=== PATIENT | female | born 1975 | race Caucasian/White ===

== ENCOUNTER 2021-01-14 05:26 | Emergency (ER) | payer OTHER ==
[~2021-01-14] VITALS: Ht 162.6 cm; Wt 68.0 kg
[2021-01-14] MEDS ORDERED: LEXAPRO 10 MG T10 M2 PO (05:35)
[2021-01-14] MEDS ORDERED: ADDERALL 20 MG20 MG PO (05:35)
[2021-01-14 05:44] LABS: URINE BILIRUBIN NEGATIVE (Negative); URINE BLOOD 2+ (Negative); URINE CLARITY CLEAR; URINE COLOR YELLOW; URINE GLUCOSE-RANDOM NEGATIVE (Negative); URINE KETONES NEGATIVE (Negative); URINE LEUKOCYTES-REFLEX NEGATIVE (Negative); URINE NITRITE-REFLEX NEGATIVE (Negative); URINE PROTEIN NEGATIVE (Negative); URINE SPECIFIC GRAVITY 1.025 (1.005-1.030); URINE UROBILINOGEN 0.2 E.U./dl (0.2-1.0)
[2021-01-14 05:51] LABS: SQUAMOUS 0-3 Few /LPF (0-3); URINE WBC-REFLEX 0-5 Rare /HPF (0-5)
[2021-01-14 05:54] LABS: BACTERIA-REFLEX 1-9 Few /HPF (None Seen); CASTS None Seen /LPF (None Seen); CRYSTALS None Seen /LPF (None Seen); MUCUS 0-3 Light strn/LPF (None Seen); URINE RBC 3-10 Few /HPF (0-2)
[2021-01-14 06:01] LABS: ABSOLUTE BASOPHILS 0.1 thou/uL (0.0-0.2); ABSOLUTE EOSINOPHILS 0.4 thou/uL (0.0-0.7); ABSOLUTE LYMPHOCYTES 1.8 thou/uL (0.8-5.3); ABSOLUTE MONOCYTES 0.7 thou/uL (0.0-1.2); ABSOLUTE NEUTROPHILS 10.1 thou/uL (1.6-8.1); BASOPHILS 0.8 %; EOSINOPHILS 3.2 %; HEMATOCRIT 42.6 % (37.0-47.0); HEMOGLOBIN 14.1 gm/dL (12.0-15.0); LYMPHOCYTES 13.5 %; MCH 28.4 pg (26.0-34.0); MCHC 33.2 g/dL (28.0-37.0); MCV 85.4 fL (80.0-100.0); MONOCYTES 5.4 %; MPV 8.8 fl. (7.2-11.1); NUCLEATED RBCS 0 /100WBC; PLATELET COUNT* 261 thou/uL (150-400); POLYS 77.1 %; RBC 4.98 mil/uL (4.20-5.00); RDW-CV 13.4 % (10.5-14.5); WBC 13.1 thou/uL (4.0-11.0)
[2021-01-14 06:03] LABS: CALCIUM 8.7 mg/dL (8.5-10.1); CREATININE 0.7 mg/dL (0.6-1.3); POTASSIUM 3.8 mmol/L (3.5-5.1)
[2021-01-14 11:09] VITALS: BP 110/65
== END 2021-01-14 11:09 | disposition still patient (30) ==
LOC: M.ERS 05:26
PROVIDERS: Emergency Medicine
DX: R10.31 Right lower quadrant pain (principal); M54.5 Low back pain; R11.0 Nausea; R31.9 Hematuria, unspecified; Z98.51 Tubal ligation status; Z79.899 Other long term (current) drug therapy

== ENCOUNTER 2021-05-10 22:28 | Emergency (ER) | payer OTHER ==
[~2021-05-10] VITALS: Ht 165.1 cm; Wt 63.5 kg
[~2021-05-10 22:28] MED LIST: ADDERALL 20 MG20 MG PO; LEXAPRO 10 MG T10 M2 PO
[2021-05-10 23:17] LABS: URINE BILIRUBIN NEGATIVE (Negative); URINE BLOOD 1+ (Negative); URINE CLARITY CLEAR; URINE COLOR YELLOW; URINE GLUCOSE-RANDOM NEGATIVE (Negative); URINE KETONES NEGATIVE (Negative); URINE LEUKOCYTES-REFLEX NEGATIVE (Negative); URINE NITRITE-REFLEX NEGATIVE (Negative); URINE PROTEIN NEGATIVE (Negative); URINE SPECIFIC GRAVITY 1.025 (1.005-1.030); URINE UROBILINOGEN 0.2 E.U./dl (0.2-1.0)
[2021-05-10 23:33] LABS: ABSOLUTE BASOPHILS 0.1 thou/uL (0.0-0.2); ABSOLUTE EOSINOPHILS 0.3 thou/uL (0.0-0.7); ABSOLUTE LYMPHOCYTES 1.6 thou/uL (0.8-5.3); ABSOLUTE MONOCYTES 0.6 thou/uL (0.0-1.2); ABSOLUTE NEUTROPHILS 6.9 thou/uL (1.6-8.1); BASOPHILS 1.3 %; CALCIUM 8.6 mg/dL (8.5-10.1); CREATININE 0.7 mg/dL (0.6-1.3); EOSINOPHILS 2.9 %; HEMATOCRIT 38.1 % (37.0-47.0); HEMOGLOBIN 13.6 gm/dL (12.0-15.0); LYMPHOCYTES 16.6 %; MCH 29.9 pg (26.0-34.0); MCHC 35.7 g/dL (28.0-37.0); MCV 83.7 fL (80.0-100.0); MONOCYTES 6.8 %; MPV 8.6 fl. (7.2-11.1); NUCLEATED RBCS 0 /100WBC; PLATELET COUNT* 230 thou/uL (150-400); POLYS 72.4 %; POTASSIUM 3.7 mmol/L (3.5-5.1); RBC 4.55 mil/uL (4.20-5.00); WBC 9.6 thou/uL (4.0-11.0)
[2021-05-10 23:38] LABS: ALBUMIN 3.3 g/dL (3.4-5.0); TOTAL BILIRUBIN 0.2 mg/dL (<0.1-1.0)
[2021-05-11 00:57] LABS: CASTS None Seen /LPF (None Seen); SQUAMOUS 4-10 Moderate /LPF (0-3)
[2021-05-11 00:58] LABS: BACTERIA-REFLEX 1-9 Few /HPF (None Seen); CRYSTALS None Seen /LPF (None Seen); URINE RBC 0-2 Rare /HPF (0-2); URINE WBC-REFLEX None Seen /HPF (0-5)
[2021-05-11] MEDS ORDERED: ZOFRAN ODT4 MG PO (02:44)
[2021-05-11] MEDS ORDERED: CARAFATE 1 GM TA1 GM PO (02:44)
[2021-05-11] MEDS ORDERED: ACETAMINOPHEN-1 EAC2 PO (02:44)
[2021-05-11 03:08] VITALS: BP 97/54
--- NOTE | 2021-05-11 10:04 | EKG ---
[place] [address] ELECTROCARDIOGRAM REPORT Name: OH PACHECO Room: [facility]#: [id number] Admission: 05/10/21 Attend Phys: Discharge: 05/11/21 Date of : 71 Date of Service: 05/10/212318 Report #: [id number] THIS REPORT FOR: //name// 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 05/11/21 1004 18 18 Escobar Vu MD, FACC /EPI
== END 2021-05-11 03:08 | disposition home or self-care (01) ==
LOC: M.ERS 22:28
PROVIDERS: Personal Emergency Response Attendant
DX: R10.11 Right upper quadrant pain (principal); Z98.51 Tubal ligation status

== ENCOUNTER 2021-06-13 18:02 | Emergency (ER) | payer OTHER ==
[~2021-06-13] VITALS: Ht 162.6 cm; Wt 63.5 kg
[~2021-06-13 18:02] MED LIST changes: +ACETAMINOPHEN-1 EAC2 PO; +CARAFATE 1 GM TA1 GM PO; +ZOFRAN ODT4 MG PO
[2021-06-13] MEDS ORDERED: CVS POLY BACITR28 G1 TOP (19:12)
[2021-06-13] MEDS ORDERED: IBU600 MG PO (19:12)
[2021-06-13] MEDS ORDERED: NORCO5 PO ×2 (19:12→19:30)
[2021-06-13 19:47] VITALS: BP 145/54
== END 2021-06-13 19:48 | disposition home or self-care (01) ==
LOC: M.ERS 18:02
DX: T24.202A Burn of second degree of unspecified site of left lower limb, except ankle and foot, initial encounter (principal); T31.0 Burns involving less than 10% of body surface; X10.2XXA Contact with fats and cooking oils, initial encounter; Y93.89 Activity, other specified; Y92.89 Other specified places as the place of occurrence of the external cause; Y99.8 Other external cause status